=== PATIENT | female | born 1975 | race Caucasian/White ===

== ENCOUNTER 2022-08-06 10:06 | Day surgery (SDC) | payer OTHER ==
[~2022-08-06] VITALS: Ht 172.7 cm; Wt 96.2 kg
[2022-08-06 11:00] VITALS: BP 131/78
[2022-08-06] MEDS ORDERED: 0.9%NACL 1000ML 1,000 ML IV ONE (12:48)
[2022-08-06] MEDS ORDERED: PROPOFOL 10 MG/ML 20ML VIAL IV ONE (13:16)
[2022-08-06] MEDS ORDERED: MIDAZOLAM HCL 1 MG/ML 2ML VIAL ONE (13:16)
[2022-08-06] MEDS ORDERED: LIDOCAINE PF 100MG/5ML (2%) SYRINGE 5ML ONE (13:16)
== END 2022-08-06 14:30 | disposition home or self-care (01) ==
LOC: DAH 10:06
PROVIDERS: ATTEND Internal Medicine Gastroenterology
DX: Z12.11 Encounter for screening for malignant neoplasm of colon (principal); D12.0 Benign neoplasm of cecum; K64.0 First degree hemorrhoids; Z91.013 Allergy to seafood; Z88.1 Allergy status to other antibiotic agents; Z20.822 Contact with and (suspected) exposure to COVID-19; Z90.49 Acquired absence of other specified parts of digestive tract; Z72.89 Other problems related to lifestyle
CPT/HCPCS: 87426; 81025; 45385; J7030 ×2; J2001; J2250; J2704; A4620; A4215 ×2; A4223; A4213; A4657; A4222; A4221; A4663; A4606